=== PATIENT | female | born 2000 | race Two or more races ===

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

== ENCOUNTER 2022-02-18 21:08 | Emergency (ER) | payer OTHER, SELFPAY ==
[2022-02-18 21:28] VITALS: BP 105/65; PULSE 88; RESP 17; TEMP 36.9; O2SAT 98; BMI 28.3
--- NOTE | 2022-02-18 21:57 | PC.NURSE ---
NO increase in eye swelling or throat itchyness.
--- NOTE | 2022-02-18 22:22 | PC.NURSE ---
swelling in eyes improved, patient can see through right eye again.
[2022-02-19] VITALS: BP 106/55; PULSE 86; RESP 16; TEMP 37.2; O2SAT 99
--- NOTE | 2022-02-19 00:31 | ED.ALLEREA ---
HPI - Allergic Reaction General Chief complaint: Allergic Reaction Stated complaint: allergic reaction, face swelling Time Seen by Provider: 02/19/22 00:01 History of Present Illness HPI narrative: Patient is a 22-year-old female presents today with having swelling to the right eye. There is no change in vision. Patient denies any change in her environment. There is no fever no chills no cough no congestion or upper respiratory symptoms. No diaphoresis. No changes in diet. No changes in lotions. No changes in medications. No travel history. Patient is from home. Related Data Previous Rx's Medication Instructions Recorded diphenhydramine HCl 25 mg capsule 25 mg PO Q8H 5 days #15 caps 02/19/22 (Benadryl) epinephrine 0.3 mg/0.3 mL 0.3 mg (0.3 mL) IM ONCE PRN 02/19/22 injection, auto-injector (EpiPen) extreme reaction #1 ea famotidine 20 mg tablet (Pepcid) 20 mg PO BID 5 days #10 tabs 02/19/22 prednisone 20 mg tablet 40 mg PO DAILY #10 tabs 02/19/22 Allergies Allergy/AdvReac Type Severity Reaction Status Date / Time No Known Allergies Allergy Verified 02/18/22 21:31 Review of Systems Review of Systems: No fever no chills no cough no congestion. All system reviewed otherwise negative Yes all other systems are reviewed and are negative FORMERLY [facility], [facility] Past Medical History Attestation statement: The following information was validated with the patient. Social History Social History Advance Directives: No Advance Directives Information Provided: No Physical Exam ED Vital Signs: Vital Signs - 24 hr 02/18/22 21:28 02/19/22 00:00 Temperature 98.5 F 98.9 F Pulse Rate 88 86 Respiratory Rate 17 16 Blood Pressure 105/65 106/55 L Pulse Oximetry 98 99 Oxygen Delivery Method Room Air Room Air BMI result Body Mass Index 28.3 Appearance: Alert. Oriented X3. No acute distress. Eyes: Pupils equal, round and reactive to light. swelling to the right upper eyelid noted. Sclera was normal. Pupils equal reactive. Vision grossly intact. ENT: Pharynx normal. No erythema no swelling noted. Neck: Normal inspection. Neck supple. No lymph nodes noted. No crepitus CVS: Normal heart rate and rhythm. Pulses normal. Normal S1 and S2 Respiratory: No respiratory distress. Breath sounds normal. No Wheezing. No rales Abdomen: Soft and nontender. No rigidity. No distention. good BS x4 Skin: Skin warm and dry. Normal skin color. Normal skin turgor. Extremities: No lower extremity edema. Neurovascular intact to all extremities. No Lacerations. No Rash Neuro: Oriented X 3. No motor deficit. No sensory deficit. Moving all extermities. No slurred speech MDM - Allergic Reaction MDM Narrative Medical decision making narrative: Well-appearing no acute distress. Will go ahead and give steroids give Benadryl. Will monitor carefully. Will discharge patient home with EpiPen. In stable condition. Lungs are clear O2 sats normal no distress Medical Records Attestation: I reviewed the patient's medical records. Lab Data Attestation: I reviewed the patient's lab results. Discharge Plan Discharge Clinical Impression: Allergic reaction Patient Disposition: Home, Self-Care Instructions: General Allergic Reaction (ED) Prescriptions: New prednisone 20 mg tablet 40 mg PO DAILY Qty: 10 0RF famotidine [Pepcid] 20 mg tablet 20 mg PO BID 5 Days Qty: 10 0RF diphenhydramine HCl [Benadryl] 25 mg capsule 25 mg PO Q8H 5 Days Qty: 15 0RF epinephrine [EpiPen] 0.3 mg/0.3 mL auto-injector 0.3 mg IM ONCE PRN (Reason: extreme reaction) Qty: 1 0RF Rx Instructions: for 2 doses
[2022-02-19] MEDS: diphenhydrAMINE HCL 25 MG CAPSULE PO (00:59)
[2022-02-19] MEDS: Famotidine 20 MG TABLET PO (00:59)
[2022-02-19] MEDS: predniSONE 20 MG TABLET 40 MG PO (00:59)
== END 2022-02-19 01:04 | disposition home or self-care (01) ==
PROVIDERS: Emergency Provider Emergency Medicine Emergency Medical Services; PCP Nurse Practitioner Family
DX: L50.0 Allergic urticaria (principal); Z79.899 Other long term (current) drug therapy
CPT/HCPCS: 99283

== ENCOUNTER 2022-03-02 14:14 | Emergency (ER) | payer OTHER, SELFPAY ==
--- NOTE | 2022-03-02 14:56 | ED_ITS ---
HPI - Allergic Reaction General Chief complaint: Allergic Reaction Stated complaint: allergic reaction ?? hives wheezing coughing Source: patient Mode of arrival: ambulatory Limitations: no limitations History of Present Illness HPI narrative: History of allergic reaction. Patient with a long history of allergic reactions, waiting to see an tire and tube repairer. Took benadryl a few hours ago and a zyrtec. Still with hives. Is concerned that her throat is closing. patient is not in any acute distress. Nothing new. patient is on prednisone currently. MD complaint: allergic reaction and hives Onset (ago): hour(s) Exposure: unknown Symptoms: rash Severity: mild Treatment prior to arrival: none Previous Allergic Reaction History: none Related Data Previous Rx's Medication Instructions Recorded diphenhydramine HCl 25 mg capsule 25 mg PO Q8H 5 days #15 caps 02/19/22 (Benadryl) epinephrine 0.3 mg/0.3 mL 0.3 mg (0.3 mL) IM ONCE PRN 02/19/22 injection, auto-injector (EpiPen) extreme reaction #1 ea famotidine 20 mg tablet (Pepcid) 20 mg PO BID 5 days #10 tabs 02/19/22 prednisone 20 mg tablet 40 mg PO DAILY #10 tabs 02/19/22 Allergies Allergy/AdvReac Type Severity Reaction Status Date / Time No Known Allergies Allergy Verified 02/18/22 21:31 Review of Systems Constitutional: Constitutional: Reports no additional constitutional complaints Eyes: Eyes: Reports no additional eye complaints ENT: Denies dizziness Cardiovascular: Cardiovascular: Reports no additional cardiovascular complaints Respiratory: Respiratory: Reports as per HPI Gastrointestinal: Gastrointestinal: Reports no additional gastrointestinal complaints Genitourinary: Genitourinary: Reports no additional female genitourinary complaints Musculoskeletal: Musculoskeletal: Reports no additional musculoskeletal complaints Integumentary/Breasts: Skin/Breast: Denies rash Neurologic: Reports system reviewed and no additional complaints, except as documented, Denies dizziness and Denies Sensory deficit (Neuro) Psychiatric: Psychiatric: Denies anxiety Physical Exam ED Vital Signs: Vital Signs - 24 hr 03/02/22 14:57 Temperature 98.1 F Pulse Rate 110 H Respiratory Rate 18 Blood Pressure 105/72 Pulse Oximetry 99 Oxygen Delivery Method Room Air BMI result Body Mass Index 27.4 Const General: healthy appearing Nutritional Appearance: average body habitus Orientation/consciousness: oriented to person and patient oriented x3 Limitations: no limitations [facility] Head: Yes normal to inspection Ears: external ears normal General nose exam: Normal external nose present Mouth: Normal oral and palatal mucosa present and oropharynx normal Throat: Yes posterior oropharynx normal Eyes General: appearance normal, both eyes and all related structures Neck Neck: Yes normal visual inspection Chest Chest palpation & inspection: normal inspection of the chest Resp Auscultation: clear to auscultation bilaterally Cardio Jugular venous distension: no JVD Rate: regular rate Rhythm: regular rhythm Heart sounds: S1 normal heart sound present and S2 normal heart sound present GI Inspection: Yes normal to inspection Palpation (GI): Soft to palpation, nontender and No hepatosplenomegaly present Auscultation: normal bowel sounds General: Yes no CVA tenderness Back/Spine/Pelvis Back: no CVA tenderness Skin Other: hives to neck and chest Neuro General: oriented to person and patient oriented x3 Cranial nerves: Yes CN's II-XII intact bilaterally Motor exam (neuro): 5/5 motor strength present throughout Sensory Exam: No Sensory deficit (Neuro) Extrem General: Yes normal to inspection Psych Appearance: grossly normal Course Reevaluation(s) Reevaluation #1: History of allergic reaction. Patient with a long history of allergic reactions, waiting to see an tire and tube repairer. Took benadryl a few hours ago and a zyrtec. Still with hives. Is concerned that her throat is closing. patient is not in any acute distress. Reevaluation #2: no evidence of throat closing is on all the right medications will dc home Time: 15:04 Discharge Plan Discharge Clinical Impression: Allergic reaction, Urticaria Patient Disposition: Home, Self-Care Prescriptions: No Action prednisone 20 mg tablet 40 mg PO DAILY Qty: 10 0RF famotidine [Pepcid] 20 mg tablet 20 mg PO BID 5 Days Qty: 10 0RF diphenhydramine HCl [Benadryl] 25 mg capsule 25 mg PO Q8H 5 Days Qty: 15 0RF epinephrine [EpiPen] 0.3 mg/0.3 mL auto-injector 0.3 mg IM ONCE PRN (Reason: extreme reaction) Qty: 1 0RF Rx Instructions: for 2 doses Referrals: Stephanie Lambert [employer] [Primary Care Provider] - 5 days
[2022-03-02 14:57] VITALS: BP 105/72; PULSE 110; RESP 18; TEMP 36.7; O2SAT 99; BMI 27.4
== END 2022-03-02 15:09 | disposition home or self-care (01) ==
LOC: HO.ED 15:08
PROVIDERS: Emergency Provider Emergency Medicine; PCP Nurse Practitioner Family
DX: T78.40XA Allergy, unspecified, initial encounter (principal); L50.9 Urticaria, unspecified; X58.XXXA Exposure to other specified factors, initial encounter
CPT/HCPCS: 99282

== ENCOUNTER 2022-03-19 23:05 | Emergency (ER) | payer OTHER, SELFPAY ==
[2022-03-19 23:07] VITALS: BP 113/72; PULSE 109; RESP 18; TEMP 36.9; O2SAT 98; BMI 28.0
--- OUTSIDE RECORDS SUMMARY | 2022-03-19 23:18 | XMS_ITS | Encounter Summary ---
:2000 Author Care Team Providers Name Role Phone [facility] Primary Care Provider [phone] Reason for Visit allergic reaction Consult for recurrent allergic reactions w/ unknown trigger Assessment and Plan Assessment Note 22 y/o female with new onset seasonal a llergic rhinoconjunctivitis symptoms who presents for evaluation of recurrent all ergic reactions of unclear trigger 1. Allergic reaction Differential includes idiopathic anaphy laxis, catemenial anaphylaxis or viral induced reaction or some other trigger that has not been identified. Complete course of prednisone. To start antihistamine regimen for next 3 months Screening tryptase today and to be repea lang off of antihistamines Epipen prn anaphylaxis Epinephrine auto injector teaching perfo rmed 2. Acute urticaria Previously associated with COVID infect ion. Plan as noted above instructed not to operate machinery if o n sedating medications ? tryptase, serum ? famotidine 20 mg tablet ? Zyrtec 10 mg tablet 3. Seasonal allergic rhinitis Zyrtec. Defer environmental testing unt il hive free off of antihistamines 4. Seasonal allergic conjunctivitis Plan as noted above She understood and agreed with plan Written instructions given and reviewed Follow-up with PCP for all other comorbi dities Follow-up 3 months for urticaria and med check to see if she can taper Discussion Note: None recorded.Patient educational handouts: No information available. Plan of Care Patient Instructions Zyrtec (Cetirizine) 1 tablet once a day at bedtime Famotidine 1 tablet 2 times a day Remain on this for 3 months screening lab today , to repeat off of a ntihistamines Reminders Provider Appointments Telehealth Follow up 06/24/2022 2:00PM Zohreh Luke MD Lab Tryptase, Serum 03/10/2022 [facility] Refer ence Lab [place] [facility] Referral None recorded. ? ? Procedures None recorded. ? ? Surgeries None recorded. ? ? Imaging None recorded. ? ? Medications Name Start Date ? ? diphenhydramine 25 mg tablet ? Take 1 tablet as needed by oral route as needed. EpiPen 0.3 mg/0.3 mL injection, auto-injector ? Take by injection route. famotidine 20 mg tablet ? Take 1 tablet twice a day by oral route. prednisone 25 mg tablet ? Take by oral route. Zyrtec 10 mg tablet ? Take 1 tablet every day by oral route. Medications Administered None recorded. Vitals Height Weight BMI Blood Pressure 5 ft 6 in 180.2 lbs 29.1 kg/m2 102/62 mm[Hg] Results Lab Results Date Name Specimen Result Interpretation Description Value Range Status Address ? 03/10/2022 Tryptase, Serum ? Tryptase 5.8 ? F inal [facility]: [address], [place] [address] Allergies Code Code System Name Reaction Severity Onset NKDA ? ? ? Problems Name Status Onset Date Source ? Seasonal Allergic Conjunctivitis Active 03/10/2022 ? Seasonal Allergic Rhinitis Active 03/10/2022 ? Acute Urticaria Active 03/10/2022 ? Allergic Reaction Active 03/10/2022 ? Procedures None recorded. Vaccine List None recorded. Social History Have you been exposed to chemicals or toxins? N Is your home air conditioned? Y Do you have any pets? Y Notes: 1 dog Do you have a humidifier? Y Do you have moisture problems in your home? N Have you been exposed to heavy metals? N Do you have a basement? Y Do you have an electrostatic air filter? Y Are you passively exposed to smoke? N Are there any smokers in your house? N Where do you live? [facility] How long have you lived there? 3 years Functional Status Unknown. Past Encounters 03/10/2022 Allergic Reaction; Acute Urticaria; Seas onal Allergic Rhinitis; Seasonal Allergic Conjunctivitis Zohreh Luke MD: [address] [place] [address], [address] [id number], Ph. History of Present Illness Note: <div>Pt was seen at [place] ED on 03/02/22 for possible allergic reaction. Pt had been cleaning and opened her window to allow for fresh air. That is when pt developed pruritic hives on her neck,ears, face, axillaries, & upper abdomen. Pt also started coughing and wheezing. Pt denied any changes in diet, medications, cosmetics, detergents, etc. Pt took Benadryl & Zyrtec which re sulted in some improvement in symptoms. ED notes scanned into pt's chart. Pt was started on prednisone by ED and has 2 days left for course.</div><div>ED provided her with Epipen. PCP gave her an asthma pump because she was wheezing with that reaction. </div><div>
</div><div>Pt stated that this was the 3rd time she has experienced this type of reaction. The first time, pt was at rest doing homework. This was the last week of January ( February 18).She experienced itchy, swollen eyes and sneezing this time, as well. The second time was February 26 pt had washed herself with water from outside hose because she did not have access to indoor plumbing at the time. Pt developed hives after this. </div><div>
</div><div>She went to the ED with the last 2 episodes. No taper. This last reaction occurred while still on prednisone.</div><div>No new foods, no enviromental changes, no changes in laundry detergent.</div><div>She denies COVID symptoms. However , she did have COVID in 2019 and had hives during that illness. </div><div>She also had hives again in December when she had COVID again.</div><div>In January, she had a cold with allergies. </div><div>Denies any recent vaccinations. Last COVID vaccine 2020. </div><div>Denies previous history of reactions. </div><div>
</div><div>Denies history of asthma, eczema, food allergy, venom allergy </div><div>
</div><div>Allergic rhinoconjunctivitis symptoms just started this year in December</div><div>Endorses menses during this reaction. Use of NSAID only twice and not on days when reactions occurred.</div> Review of Systems ? Brief Otolaryngology ROS Reported By: Patient Constitutional: Constitutional: no fever, no night sweats, no significant weight gain, no significant weight loss, no exercise intolerance Eyes: Eyes: no irritation, no visi on change ENMT: Ears: no difficulty hearing. Nose: no frequent nosebleeds, nose/sinus problems. Mouth/T hroat: no sore throat, no snoring, no mouth breathing Cardiovascular: Cardiovascular: no chest cassandra n, no palpitations, no known heart murmur Respiratory: Respiratory: no cough, no wh eezing, no shortness of breath Gastrointestinal: Gastrointestinal: no abdomin al pain, no diarrhea, no GERD Neurologic: Neurologic: no loss of consc iousness, no seizures, no headaches Physical Exam ? Brief ENT Exam Reported By: Patient General:: General: well-developed, wel l-nourished, NAD Skin:: Skin: warm, dry, good turgor , pink, no rashes/lesions, hydrated Head:: Head: normal shape, symmetry Neck:: Neck: supple, no mass, no ad enopathy, no thyromegaly Eyes:: Eyes: normal conjunctiva, no rmal sclera, PERRLA, normal lids Ears:: Ears: normal tympanic membra kinsey, good landmarks Nose:: Nose: pink mucosa, normal tu rbinates, septum midline Mouth, Throat:: Mouth, Throat: moist mucosa, no erythema or exudates Chest:: Chest: clear breath sounds, normal respirations, no retractions Heart:: Heart: regular rate and rhyt hm, no murmurs Extremities:: Extremities: good muscle mas s, good muscle tone, good muscle strength Neuromuscular:: Neuromuscular: alert, normal coordination
--- OUTSIDE RECORDS SUMMARY | 2022-03-19 23:18 | XMS_ITS ---
:2000 Author Care Team Providers Name Role Phone Marcel Majano Primary Care Provider Unavailable Allergies Code Code System Name Reaction Severity Status Onset NKDA ? Medications Name Status Start Date Stop Date ? ? azelastine 0.05 % eye drops Active ? Not available INSTILL 1 DROP INTO AFFECTED EYE TWICE A DAY Problems None recorded. Procedures None recorded. Results Lab Results Date Name Specimen Result Interpretation Description Value Range Status Address ? 12/07/2021 SARS CoV 2 RNA ? Result negative ? ? 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 Social History None recorded. Vaccine List Notes: covid vaccinated Pfizer Plan of Care Reminders Provider Appointments None recorded. ? ? Lab None recorded. ? ? Referral None recorded. ? ? Procedures None recorded. ? ? Surgeries None recorded. ? ? Imaging None recorded. ? ? Vitals Blood Pressure 100/62 mm[Hg]
--- NOTE | 2022-03-19 23:33 | ED.ALLEREA ---
HPI - Allergic Reaction General Chief complaint: Allergic Reaction Stated complaint: Allergic Reaction, hives, itchy Time Seen by Provider: 03/19/22 23:24 Source: patient and family Mode of arrival: ambulatory Limitations: no limitations History of Present Illness HPI narrative: This is a 22-year-old female presenting to the emergency department with hives throughout body x1 hour. According to patient and father who is at the bedside patient has been struggling with allergies for over 4 weeks, unsure what patient is allergic to, she is currently in the process of getting an appointment with an art education professor to test. Her daily medications include Zyrtec and TheraFlu. She tells me the last thing she ate was a little bit of rice, and was onion however this was a while ago. She denies chest pain shortness of breath, nausea, vomiting, changes in voice, fevers, chills, cough, changes in can nausea, vomiting, abdominal pain. To note patient does have an EpiPen however she did not use it prior to arrival. Related Data Previous Rx's Medication Instructions Recorded diphenhydramine HCl 25 mg capsule 25 mg PO Q8H 5 days #15 caps 02/19/22 (Benadryl) epinephrine 0.3 mg/0.3 mL 0.3 mg (0.3 mL) IM ONCE PRN 02/19/22 injection, auto-injector (EpiPen) extreme reaction #1 ea famotidine 20 mg tablet (Pepcid) 20 mg PO BID 5 days #10 tabs 02/19/22 prednisone 20 mg tablet 40 mg PO DAILY #10 tabs 02/19/22 epinephrine 0.3 mg/0.3 mL 0.3 mg (0.3 mL) IM Q4H PRN 03/19/22 injection, auto-injector (EpiPen anaphylaxis #2 ea 2-Herber) prednisone 20 mg tablet 40 mg PO DAILY 5 days #10 tabs 03/19/22 Allergies Allergy/AdvReac Type Severity Reaction Status Date / Time No Known Allergies Allergy Verified 02/18/22 21:31 Review of Systems Review of Systems: Constitutional : No Weight loss, No Fever, No Chills, No Fatigue, No Malaise ENT/Mouth : No sore throat, No Rhinorrhea Eyes: No Eye Pain, No Swelling, No Redness Cardiovascular : No Chest Pain, No SOB, No Dyspnea on Exertion, No Orthopnea, No Edema, No Palpitations Respiratory : No Cough, No Sputum, No Wheezing Gastrointestinal : No Nausea, No Vomiting, No Diarrhea, No Constipation, No abdominal Pain, No Hematochezia, No Melena Genitourinary : No Dysuria, No Urinary Frequency, No Hematuria, Musculoskeletal : No joint pain, No Myalgias, No Joint Swelling Skin : No Skin Lesions, + rash Neuro : No Weakness, No Numbness, No Dizziness, No Headache Psych : No Anxiety/Panic, No Depression All other systems reviewed and are negative Yes all other systems are reviewed and are negative [facility] Past Medical History Attestation statement: The following information was validated with the patient. Source: old records reviewed and nursing notes reviewed Social History Social History Advance Directives: No Advance Directives Information Provided: No Physical Exam ED Vital Signs: Vital Signs - 24 hr 03/19/22 23:07 Temperature 98.5 F Pulse Rate 109 H Respiratory Rate 18 Blood Pressure 113/72 Pulse Oximetry 98 Oxygen Delivery Method Room Air BMI result Body Mass Index 28.0 vss Appearance: Alert.? Oriented X3.? No acute distress.? Head: Normocephalic, atraumatic, no step-offs or deformities Eyes: Pupils equal, round and reactive to light.? ENT: Pharynx normal.? Airway patent. No edema, erythema to posterior pharynx, uvula, tongue, hard or soft palate. Patient speaking in full sentences controlling secretions well. Mallampati score of 1 Neck: Normal inspection.? Neck supple.? CVS: Normal heart rate and rhythm.? Pulses normal.? Respiratory: No respiratory distress.? Breath sounds normal.? Abdomen: Soft and nontender.? Skin: Skin warm and dry.? Normal skin color.? Normal skin turgor.?+ hives throughout body head to toe. Extremities: No lower extremity edema.? No calf ttp. 5/5 strength to bilateral upper and lower extremities Back: No midline tenderness, no C-spine tenderness, full range of motion, no CVA tenderness bilaterally Neuro: Oriented X 3.? No motor deficit.? No sensory deficit. CN 2-12 intact Course Reevaluation(s) Reevaluation #1: Re-evaluated patient patient no longer has hives. Again patent airway. No difficulty breathing, chest pain, shortness of breath, nausea, vomiting. Patient tells me she is feeling much better. Will observe patient for a little longer, re-evaluate and discharge her home with EpiPen, prednisone. Advised to follow-up with her PCP in to follow-up with her allergy doctor. Sign-out to doctors carmine Time: 00:16 Medications Administered Discontinued Medications Generic Name Dose Route Start Last Admin Trade Name Fabio PRN Reason Stop Dose Admin Diphenhydramine HCl 25 mg 03/19/22 23:32 03/19/22 23:54 Diphenhydramine Hcl 50 Mg/Ml Vial IVPUSH 03/19/22 23:33 25 mg ONCE ONE Administration Famotidine 20 mg 03/19/22 23:32 03/19/22 23:54 Famotidine/Pf 20 Mg/2 Ml Vial IVPUSH 03/19/22 23:33 20 mg ONCE ONE Administration Methylprednisolone Sodium Succinate 125 mg 03/19/22 23:32 03/19/22 23:54 Methylprednisolone Sod Succ 125 Mg/2 Ml Vial IVPUSH 03/19/22 23:33 125 mg ONCE ONE Administration MDM - Allergic Reaction MDM Narrative Medical decision making narrative: 0 22-year-old female presents with hives throughout body, currently in the process of allergy testing pending an appointment. Did not use an EpiPen. No chest pain, shortness of breath, nausea, vomiting, GI upset Upon physical exam Pharynx normal.? Airway patent. No edema, erythema to posterior pharynx, uvula, tongue, hard or soft palate. Patient speaking in full sentences controlling secretions well. Mallampati score of 1 Plan at this time is to give Solu-Medrol, Benadryl, Pepcid. No need for epi at this times as I do not suspect anaphylaxis. No angioedema or signs of airway compromise. Medical Records Attestation: I reviewed the patient's medical records. Lab Data Attestation: I reviewed the patient's lab results. Critical Care Time Critical Care Time Critical Care Time: No Discharge Plan Discharge Clinical Impression: Allergic reaction, Urticaria Patient Disposition: Home, Self-Care Instructions: Urticaria (ED), Acute Rash (ED), Allergy Testing (ED) Additional Instructions: Take your medications as prescribed. If you were prescribed antibiotics today, it is important that you take your medication to their entirety, do not skip any doses, do not finish them early. Follow-up with your primary care provider this week. Return to the emergency department with new or worsening symptoms. Such as fevers, chills, chest pain, shortness of breath, nausea, vomiting, dizziness, headache, vision changes, lethargy In case of emergency call 911 As we discussed use your EpiPen if you experience difficulty breathing, shortness of breath. I educated on proper use. Please follow-up with allergy testing. Return with new or worsening symptoms. You can take Benadryl 50 mg every 6-8 hours as needed for rash, allergic reaction. It is important to note that if use an EpiPen you should be medically evaluated in go to the closest emergency department therefore call 911 if you use your EpiPen. Prescriptions: New epinephrine [EpiPen 2-Herber] 0.3 mg/0.3 mL auto-injector 0.3 mg IM Q4H PRN (Reason: anaphylaxis) Qty: 2 0RF prednisone 20 mg tablet 40 mg PO DAILY 5 Days Qty: 10 0RF No Action prednisone 20 mg tablet 40 mg PO DAILY Qty: 10 0RF famotidine [Pepcid] 20 mg tablet 20 mg PO BID 5 Days Qty: 10 0RF diphenhydramine HCl [Benadryl] 25 mg capsule 25 mg PO Q8H 5 Days Qty: 15 0RF epinephrine [EpiPen] 0.3 mg/0.3 mL auto-injector 0.3 mg IM ONCE PRN (Reason: extreme reaction) Qty: 1 0RF Rx Instructions: for 2 doses Referrals: Physician,Unknown J [Primary Care Provider] - 2 days Stand Alone Forms: Work/School Release
[2022-03-19] MEDS: Famotidine/PF 20 MG/2 ML VIAL IVPUSH (23:54)
[2022-03-19] MEDS: methylPREDNISolone Sod Succ 125 MG/2 ML VIAL IVPUSH (23:54)
[2022-03-19] MEDS: diphenhydrAMINE HCL 50 MG/ML VIAL 25 MG IVPUSH (23:54)
[2022-03-20] VITALS: BP 115/74; PULSE 106; RESP 16; TEMP 36.9; O2SAT 98
--- NOTE | 2022-03-20 00:49 | PC.NURSE ---
pt sleeping at this time. pt's father at bedside
== END 2022-03-20 01:31 | disposition home or self-care (01) ==
PROVIDERS: Emergency Provider Internal Medicine
DX: T78.40XA Allergy, unspecified, initial encounter (principal); L50.9 Urticaria, unspecified; X58.XXXA Exposure to other specified factors, initial encounter
CPT/HCPCS: 96374; 96375; 99284; J1200; J2930

== ENCOUNTER 2022-08-09 23:46 | Emergency (ER) | payer OTHER, SELFPAY ==
[2022-08-10 00:05] VITALS: BP 111/70; PULSE 79; RESP 18; TEMP 37.1; O2SAT 96; BMI 29.9
--- NOTE | 2022-08-10 00:18 | PC.NURSE ---
Per provider Fermín, lab are not needed to be drawn.
--- NOTE | 2022-08-10 00:25 | ED.GENADULT ---
HPI - General Adult General Chief complaint: Allergic Reaction Stated complaint: allergic reaction, hives, rash Time Seen by Provider: 08/10/22 00:15 Source: patient, family, RN notes reviewed and old records reviewed Mode of arrival: ambulatory Limitations: no limitations History of Present Illness HPI narrative: 22-year-old female with long history of allergic reaction presents for evaluation of what she believes is an allergic reaction She reports that she woke up an hour or 2 ago with hives and swelling to her upper eyelids She reports that she is currently seeing an powerhouse engineer to determine what she wanted to but they believe it is an environmental allergen She has not tried any new medications, foods, soaps, lotions, detergents She takes Zyrtec and famotidine daily The patient took Benadryl 25 mg prior to arrival with some improvement in her symptoms She felt that she had some wheezing earlier but denies any shortness of breath now. She has no difficulty breathing or swallowing The patient has epi pens at home but did not use them Related Data Previous Rx's Medication Instructions Recorded diphenhydramine HCl 25 mg capsule 25 mg PO Q8H 5 days #15 caps 02/19/22 (Benadryl) epinephrine 0.3 mg/0.3 mL 0.3 mg (0.3 mL) IM ONCE PRN 02/19/22 injection, auto-injector (EpiPen) extreme reaction #1 ea famotidine 20 mg tablet (Pepcid) 20 mg PO BID 5 days #10 tabs 02/19/22 prednisone 20 mg tablet 40 mg PO DAILY #10 tabs 02/19/22 epinephrine 0.3 mg/0.3 mL 0.3 mg (0.3 mL) IM Q4H PRN 03/19/22 injection, auto-injector (EpiPen anaphylaxis #2 ea 2-Herber) prednisone 20 mg tablet 40 mg PO DAILY 5 days #10 tabs 03/19/22 prednisone 20 mg tablet 40 mg PO DAILY #6 tabs 08/10/22 Allergies Allergy/AdvReac Type Severity Reaction Status Date / Time No Known Allergies Allergy Verified 02/18/22 21:31 Review of Systems Constitutional: Constitutional: Reports as per HPI, Denies chills, Denies fatigue, Denies fever(s) and Denies headache(s) ENT: Denies headache(s) Cardiovascular: Cardiovascular: Denies chest pain and Denies dyspnea Respiratory: Respiratory: Denies cough and Denies dyspnea Gastrointestinal: Gastrointestinal: Denies abdominal pain, Denies constipation and Denies vomiting Genitourinary: Genitourinary: Denies dysuria Integumentary/Breasts: Skin/Breast: Reports rash Neurologic: Denies headache(s) and Denies focal weakness Endocrine: Endocrine: Denies fatigue PMFSH Social History Social History Alcohol intake: never Smoked in Last 30 Days: No Use of substances other than those prescribed or required for medical reasons: No Advance Directives: No Advance Directives Information Provided: Yes Patient : No Physical Exam ED Vital Signs: Vital Signs - 24 hr 08/10/22 00:05 08/10/22 01:58 Temperature 98.7 F 98.7 F Pulse Rate 79 77 Respiratory Rate 18 16 Blood Pressure 111/70 100/60 Pulse Oximetry 96 98 Oxygen Delivery Method Room Air Room Air BMI result Body Mass Index 29.9 Const General: healthy appearing, comfortable, no acute distress, alert and awake Nutritional Appearance: well nourished Orientation/consciousness: patient oriented x3 HENMT Head: Yes normocephalic and Yes atraumatic Throat: Yes posterior oropharynx normal Eyes Eyelids: Yes eyelids normal Conjunctivae: conjunctivae normal Sclerae: sclerae normal Corneas: corneas normal Pupils: Equal, round and reactive pupils present EOM: EOMs intact bilaterally Neck Neck: Yes full ROM Resp Other: No stridor on exam Effort & Inspection: normal respiratory effort, able to speak in complete sentences, no audible wheezes and not labored Auscultation: clear to auscultation bilaterally Cardio Rate: regular rate Rhythm: regular rhythm GI Inspection: No distended Palpation (GI): Soft to palpation, not firm, nontender, no guarding and not rigid Auscultation: normoactive bowel sounds Skin Other: Mild bilateral periorbital urticaria with faint erythema. No oral come perioral or retropharyngeal edema Neuro General: patient oriented x3 Cranial nerves: Yes CN's II-XII intact bilaterally, Yes Equal, round and reactive pupils present and Yes Bilaterally intact EOM present Cognition (Neuro): normal cognition Extrem Other: Moving all extremities well without any obvious deformities Course Reevaluation(s) Reevaluation #1: Patient re-evaluated, symptoms improved, she is stable for discharge at this time Time: 01:59 Medications Administered Discontinued Medications Generic Name Dose Route Start Last Admin Trade Name Fabio PRN Reason Stop Dose Admin Diphenhydramine HCl 25 mg 08/10/22 00:21 08/10/22 00:47 Diphenhydramine Hcl 25 Mg Capsule PO 08/10/22 00:22 25 mg ONCE ONE Administration Famotidine 20 mg 08/10/22 00:21 08/10/22 00:47 Famotidine 20 Mg Tablet PO 08/10/22 00:22 20 mg ONCE ONE Administration Prednisone 60 mg 08/10/22 00:21 08/10/22 00:47 Prednisone 20 Mg Tablet PO 08/10/22 00:22 60 mg ONCE ONE Administration Medical Decision Making Medical Decision Making [facility] Narrative: Patient along history allergic reaction, appears to have a localized reaction her upper eyelids that is improving with Benadryl that she took. We will add additional doses were eating, additional Benadryl and prednisone and follow closely. Differential Diagnosis Urticaria Allergic reaction Dermatitis Acute rash Anaphylaxis less likely Discharge Plan Discharge Clinical Impression: Allergic reaction Patient Disposition: Home, Self-Care Instructions: General Allergic Reaction (ED) Additional Instructions: Take Benadryl up to 50 mg every 4-6 hours as needed for itching and rash. Take prednisone 40 mg daily for the next 3 days Prescriptions: New prednisone 20 mg tablet 40 mg PO DAILY Qty: 6 0RF No Action prednisone 20 mg tablet 40 mg PO DAILY Qty: 10 0RF famotidine [Pepcid] 20 mg tablet 20 mg PO BID 5 Days Qty: 10 0RF diphenhydramine HCl [Benadryl] 25 mg capsule 25 mg PO Q8H 5 Days Qty: 15 0RF epinephrine [EpiPen] 0.3 mg/0.3 mL auto-injector 0.3 mg IM ONCE PRN (Reason: extreme reaction) Qty: 1 0RF Rx Instructions: for 2 doses epinephrine [EpiPen 2-Herber] 0.3 mg/0.3 mL auto-injector 0.3 mg IM Q4H PRN (Reason: anaphylaxis) Qty: 2 0RF prednisone 20 mg tablet 40 mg PO DAILY 5 Days Qty: 10 0RF Interventions: ED Discharge Assessment Last Done: 08/10/22 02:49 Discharge Date/Time: 08/10/22 02:50
[2022-08-10] MEDS: predniSONE 20 MG TABLET 60 MG PO (00:47)
[2022-08-10] MEDS: diphenhydrAMINE HCL 25 MG CAPSULE PO (00:47)
[2022-08-10] MEDS: Famotidine 20 MG TABLET PO (00:47)
--- NOTE | 2022-08-10 00:53 | PC.NURSE ---
Pt A&Ox4, denies any pain, reports some hives starting last night around 2330, unknown allergen exposure, states this has happen to me before when I open the windows at home . Pt denies any SOB, tongue swelling or CP. Pt speaking in full sentences, RR 18, 96% on RA, lung sounds clear throughout. Meds given as documented.
[2022-08-10 01:58] VITALS: BP 100/60; PULSE 77; RESP 16; TEMP 37.1; O2SAT 98
== END 2022-08-10 02:50 | disposition home or self-care (01) ==
PROVIDERS: Emergency Provider Emergency Medicine Emergency Medical Services
DX: L50.9 Urticaria, unspecified (principal); T78.40XA Allergy, unspecified, initial encounter; X58.XXXA Exposure to other specified factors, initial encounter
CPT/HCPCS: 99283; 99284

== ENCOUNTER 2022-11-14 20:55 | Emergency (ER) | payer OTHER, SELFPAY ==
[2022-11-14 21:03] VITALS: BP 105/59; PULSE 102; RESP 20; TEMP 37
--- NOTE | 2022-11-14 21:14 | ED.GENADULT ---
HPI - General Adult General Chief complaint: Allergic Reaction Stated complaint: allergic reaction, swollen eyes Time Seen by Provider: 11/14/22 21:14 Source: patient and family (patient's mother) Mode of arrival: ambulatory Limitations: no limitations History of Present Illness HPI narrative: Patient is a 22 year old assigned female at with a history of various allergies presenting to the emergency department today with an allergic reaction with swelling around her eyes. Patient states that she is still working with an oncology physician assistant to determine what exact allergies she has but today after hugging a friend of hers wearing a perfume, her eyes began to swell. Patient states that this happens fairly often but it usually resolves after Benadryl, this time it hasn't. Patient states that she took a total of 50mg of Benadryl by mouth at home. Patient denies any dizziness, lightheadedness, abdominal pain, nausea, vomiting, fever, chills, blurry vision, double vision, loss of vision, chest pain, difficulty breathing, shortness of breath, back pain, night sweats, pain with urination, increased urinary frequency, increased urinary urgency, blood in her urine or stool, syncope or a near syncopal episode, recent trauma or falls, bowel incontinence, bladder incontinence, bowel retention, bladder retention, or any other complaints at this time. Onset (ago): hour(s) Location: face Radiation: non-radiation Severity: mild Severity scale (1-10): 3 Relieving factors: none Exacerbating factors: none Associated symptoms: denies other symptoms Treatments prior to arrival: none Related Data Previous Rx's Medication Instructions Recorded diphenhydramine HCl 25 mg capsule 25 mg PO Q8H 5 days #15 caps 02/19/22 (Benadryl) epinephrine 0.3 mg/0.3 mL 0.3 mg (0.3 mL) IM ONCE PRN 02/19/22 injection, auto-injector (EpiPen) extreme reaction #1 ea famotidine 20 mg tablet (Pepcid) 20 mg PO BID 5 days #10 tabs 02/19/22 prednisone 20 mg tablet 40 mg PO DAILY #10 tabs 02/19/22 epinephrine 0.3 mg/0.3 mL 0.3 mg (0.3 mL) IM Q4H PRN 03/19/22 injection, auto-injector (EpiPen anaphylaxis #2 ea 2-Herber) prednisone 20 mg tablet 40 mg PO DAILY 5 days #10 tabs 03/19/22 prednisone 20 mg tablet 40 mg PO DAILY #6 tabs 08/10/22 prednisone 20 mg tablet 20 mg PO DAILY 7 days #7 tabs 11/14/22 Allergies Allergy/AdvReac Type Severity Reaction Status Date / Time No Known Allergies Allergy Verified 02/18/22 21:31 Review of Systems Constitutional: Constitutional: Reports no additional constitutional complaints, Denies chills, Denies fever(s) and Denies night sweats Eyes: Eyes: Reports no additional eye complaints, Denies blurry vision, Denies change in vision, Denies diplopia, Denies eye discharge, Denies loss of vision and Denies eye pain Comments: swelling around the eyes ENT: Denies dizziness Cardiovascular: Cardiovascular: Reports no additional cardiovascular complaints, Denies chest pain, Denies lightheadedness, Denies Loss of Consciousness and Denies dyspnea Respiratory: Respiratory: Reports no additional respiratory complaints and Denies dyspnea Gastrointestinal: Gastrointestinal: Reports no additional gastrointestinal complaints, Denies abdominal pain, Denies melena, Denies hematochezia, Denies change in bowel habits and Denies change in stool character Genitourinary: Genitourinary: Denies hematuria, Denies urinary frequency, Denies dysuria, Denies urinary incontinence, Denies urinary hesitancy and Denies urinary urgency Musculoskeletal: Musculoskeletal: Reports no additional musculoskeletal complaints, Denies numbness and Denies tingling Neurologic: Denies dizziness, Denies loss of vision, Denies numbness and Denies tingling Psychiatric: Psychiatric: Reports no additional psychiatric complaints Endocrine: Endocrine: Reports no additional endocrine complaints Hematologic/Lymphatic: Hematologic/Lymphatic: Reports no additional hematologic/lymphatic complaints Allergic/Immunologic: Allergic/Immunologic: Reports no additional allergic/immunologic complaints PMFSH Past Medical History Attestation statement: The following information was validated with the patient. (all information validated with the patient's mother) Source: old records reviewed, obtained from family (patient's mother provided additional history and confirmed the history provided by the patient.) and nursing notes reviewed Social History Social History Alcohol intake: never Smoked in Last 30 Days: No Use of substances other than those prescribed or required for medical reasons: No Advance Directives: No Advance Directives Information Provided: No Patient : No Physical Exam ED Vital Signs: Vital Signs - 24 hr 11/14/22 21:03 Temperature 98.6 F Pulse Rate 102 H Respiratory Rate 20 Blood Pressure 105/59 L Oxygen Delivery Method Room Air BMI result Body Mass Index 30.0 Const General: cooperative, no acute distress, alert and awake Nutritional Appearance: well nourished Orientation/consciousness: patient oriented x3 Limitations: no limitations HENMT Head: Yes normal to inspection and Yes atraumatic Ears: hearing grossly normal bilaterally and external ears normal General nose exam: Normal external nose present, no nasal discharge noted and no epistaxis Face and sinus: Yes normal facial exam, No abrasion and No laceration Mouth: Normal oral and palatal mucosa present, no drooling and no muffled voice Eyes Other: minimal swelling / puffiness to bilateral upper and lower eye lids Conjunctivae: conjunctivae normal Pupils: Equal, round and reactive pupils present EOM: EOMs intact bilaterally Neck Neck: Yes normal visual inspection, Yes full ROM and Yes no lymphadenopathy Chest Chest palpation & inspection: normal inspection of the chest Resp Effort & Inspection: normal respiratory effort and able to speak in complete sentences Auscultation: clear to auscultation bilaterally Cardio Rate: regular rate Rhythm: regular rhythm GI Inspection: Yes normal to inspection Neuro General: patient oriented x3 and moves all extremities Cranial nerves: Yes Equal, round and reactive pupils present Cognition (Neuro): normal cognition Motor exam (neuro): 5/5 motor strength present throughout Sensory Exam: Normal double simultaneous stimulation for sensation Coordination: [id number] test normal Extrem General: Yes normal to inspection, Yes full ROM and Yes capillary refill normal Psych Appearance: grossly normal Mental Status: mental status grossly normal Affect: normal affect Attitude: cooperative Thought process: Normal thought process present Thought content: Normal thought content present Insight: Good insight present (Psych) Medications Administered Discontinued Medications Generic Name Dose Route Start Last Admin Trade Name Freq PRN Reason Stop Dose Admin Famotidine 20 mg 11/14/22 21:23 11/14/22 22:09 Famotidine 20 Mg Tablet PO 11/14/22 21:24 20 mg ONCE ONE Administration Methylprednisolone Sodium Succinate 60 mg 11/14/22 21:23 11/14/22 22:09 Methylprednisolone Sod Succ 125 Mg/2 Ml Vial IM 11/14/22 21:24 60 mg ONCE ONE Administration Medical Decision Making Medical Decision Making [facility] Narrative: Patient is a 22 year old assigned female at with a history of allergies presenting to the emergency department today with an allergic reaction. Patient's physical exam was as noted in the physical exam portion of this chart. I explained my physical exam findings to the patient and the patient's mother. I answered all questions asked by the patient and the patient's mother. Patient received Pepcid and Solu-Medrol which she stated helped her symptoms significantly. I stressed the importance of the patient taking her medication as prescribed. I stressed the importance of the patient following up with her primary care provider. I stressed the importance of the patient returning to the emergency department immediately if her symptoms were to worsen or if she were to develop any dizziness, shortness of breath, difficulty breathing, chest pain, blurry vision, loss of vision, nausea, vomiting, abdominal pain, fever, chills, back pain, or any other complaints. Patient and the patient's mother verbalized agreement and understanding with this treatment plan and discharge. Differential Diagnosis Differential Diagnoses: The differential diagnosis associated with the presentation includes Allergic reaction Independent Historian Clinical information obtained from an independent historian. History obtained from or confirmed by: Parent (patient's mother provided additional history and confirmed the history provided by the patient.) Discharge Plan Discharge Clinical Impression: Allergic reaction Patient Disposition: Home, Self-Care Instructions: General Allergic Reaction (ED) Additional Instructions: Follow up with your primary care provider. Return to the emergency department immediately if your symptoms worsen or if you develop any dizziness, shortness of breath, difficulty breathing, chest pain, blurry vision, loss of vision, nausea, vomiting, abdominal pain, fever, chills, back pain, or any other complaints. Prescriptions: New prednisone 20 mg tablet 20 mg PO DAILY 7 Days Qty: 7 0RF No Action prednisone 20 mg tablet 40 mg PO DAILY Qty: 10 0RF famotidine [Pepcid] 20 mg tablet 20 mg PO BID 5 Days Qty: 10 0RF diphenhydramine HCl [Benadryl] 25 mg capsule 25 mg PO Q8H 5 Days Qty: 15 0RF epinephrine [EpiPen] 0.3 mg/0.3 mL auto-injector 0.3 mg IM ONCE PRN (Reason: extreme reaction) Qty: 1 0RF Rx Instructions: for 2 doses epinephrine [EpiPen 2-Herber] 0.3 mg/0.3 mL auto-injector 0.3 mg IM Q4H PRN (Reason: anaphylaxis) Qty: 2 0RF prednisone 20 mg tablet 40 mg PO DAILY 5 Days Qty: 10 0RF prednisone 20 mg tablet 40 mg PO DAILY Qty: 6 0RF Referrals: [facility] [place] Family Medicine [Provider Group] (Call to establish and follow up with a primary care provider. If you already have a primary care provider, please follow up with them.) [facility] [place] Primary Care, [place] [Provider Group] (Call to establish and follow up with a primary care provider. If you already have a primary care provider, please follow up with them.) [facility] [place] [facility] [Provider Group] (Call to establish and follow up with a primary care provider. If you already have a primary care provider, please follow up with them.) Interventions: ED Discharge Assessment Last Done: 11/14/22 23:01 Discharge Date/Time: 11/14/22 23:02 Print Language: Bermudian
[2022-11-14] MEDS: methylPREDNISolone Sod Succ 125 MG/2 ML VIAL 60 MG IM (22:09)
[2022-11-14] MEDS: Famotidine 20 MG TABLET PO (22:09)
== END 2022-11-14 23:02 | disposition home or self-care (01) ==
PROVIDERS: Emergency Provider Emergency Medicine
DX: T78.40XA Allergy, unspecified, initial encounter (principal); X58.XXXA Exposure to other specified factors, initial encounter
CPT/HCPCS: 96372; 99284; J2930

== ENCOUNTER 2023-02-13 10:29 | Outpatient (REF) | payer OTHER, SELFPAY | END 2023-02-13 10:30 | disposition home or self-care (01) | LOC: HO.LAB 10:29 | PROVIDERS: PCP Pediatrics; Visit Provider Otolaryngology | DX: L50.1 Idiopathic urticaria (principal) | CPT/HCPCS: 36415; 82785; 86003 ==

== ENCOUNTER 2023-10-26 13:46 | Outpatient (REF) | payer SELFPAY | END 2023-10-26 13:47 | disposition home or self-care (01) | LOC: HO.LAB 13:46 | PROVIDERS: PCP Pediatrics; Visit Provider Otolaryngology | DX: J30.89 Other allergic rhinitis (principal) | CPT/HCPCS: 36415; 82785; 86003 ==

== ENCOUNTER 2023-12-13 10:48 | Outpatient (AMB) | payer OTHER, SELFPAY ==
[2023-12-13 10:49] VITALS: BP 92/64; PULSE 63; O2SAT 99; BMI 29.3
--- NOTE | 2023-12-13 10:49 | MHC.PC.OV ---
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 Intake Note: Patient is a new patient here to establish care Electrical Electronics Engineers Required: No Allergies No Known Allergies Allergy (Verified 12/13/23 11:08) Medication List - Last Reconciled 12/13/23 by Aubrie Castañeda PA-C albuterol sulfate 90 mcg/actuation 1 inh inhalation QID cetirizine 10 mg PO DAILY diphenhydramine HCl (Benadryl) 25 mg PO Q8H 5 days epinephrine (EpiPen) 0.3 mg (0.3 mL) IM ONCE PRN epinephrine (EpiPen 2-Herber) 0.3 mg (0.3 mL) IM Q4H PRN montelukast 10 mg PO DAILY Tobacco use date assessed: 12/13/23 Dental Screening Dental Screen Date: 12/13/23 Did you have a dental visit in the last 12 months?: No Did you have a dental problem in the last 6 months where you did not have access to dental care?: No 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 Patient has been seen in [facility] on various occasions for urticaria and allergic reactions. 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 She uses her inhaler as needed which is a few times per month. She does not follow with a formal waiter/waitress and is not sexually active. She regularly sees an eye doctor over the ear. Previously she was diagnosed with acid reflux and was on famotidine but has been without treatment for some time now as her symptoms have been worsening. [facility] Family History (Updated 12/13/23 @ 11:10 by Aubrie Castañeda PA-C) Paternal Grandmother Heart attack Social History Housing: House Alcohol intake: never Patient Tobacco Use Status: Never used Tobacco service: No Current occupational status: employed Cognitive needs: No Hearing needs: No Vision needs: No Female Reproductive History Menstrual control method: none Questionnaire PHQ-9 Over the last 2 weeks, how often have you been bothered by any of the following problems? 1. Little interest or pleasure in doing things: not at all 2. Feeling down, depressed, or hopeless: not at all 3. Trouble falling or staying asleep, or sleeping too much: not at all 4. Feeling tired or having little energy: not at all 5. Poor appetite or overeating: not at all 6. Feeling bad about yourself - or that you are a failure or have let yourself or your family down: not at all 7. Trouble concentrating on things, such as reading the newspaper or watching television: not at all 8. Moving or speaking so slowly that other people could have noticed. Or the opposite - being so fidgety or restless that you have been moving around a lot more than usual: not at all 9. Thoughts that you would be better off or of hurting yourself in some way: not at all Total score: 0 Source: Developed by Drs. Sudarshan Abreu, Candace Zarco, Michael Duggan and colleagues, with an educational gama from [employer]. Thrive Questionnaire Date Thrive assessed: 12/07/23 I am a: Patient What is your living situation today?: I have a steady place to live Within the past 12 months, did the food you bought not last and you didn't have the money to get more?: Never true Within the past 12 months, did you worry whether your food would run out before you got money to buy more?: Never true Do you have trouble paying for medicines?: No Do you have trouble getting transportation to medical appointments?: No Do you have trouble paying your heating and electricity bill?: No Do you have trouble taking care of your child, family member or friend?: No Do you have trouble with day-to-day activities such as bathing, preparing meals, shopping, managing finances, etc.?: No Are you currently unemployed and looking for a job?: No Are you interested in more education?: Yes Please select the resources that you would like help with: None Currently or been in a relationship where the following occur: No concerns reported THRIVE Score: 0 AUDIT C Alcohol Use Questionnaire (AUDIT-C) 1. How often do you have a drink containing alcohol?: Never 3. How often do you have six or more drinks on one occasion?: Never Total Score: 0 DIANNE-7 AMB Questionnaire DIANNE-7 Date DIANNE - 7 assessed: 12/13/23 Feeling nervous, anxious, or on edge: 0 = Not at all Not being able to stop or control worryin = Not at all Worrying too much about different things: 0 = Not at all Trouble relaxin = Not at all Being so restless that it is hard to sit still: 0 = Not at all Becoming easily annoyed or irritable: 0 = Not at all Feeling afraid as if something awful might happen: 0 = Not at all Total DIANNE-7 score (0-4 normal; 5-9 mild; 10-14 moderate; 15-21 severe): 0 Source: Developed by Drs. Sudarshan bAreu, Candace Zarco, Michael Duggan and colleagues, with an educational gama from [employer]. Review of Systems Const Denies body aches, Denies fatigue, Denies fever(s), Denies frequent falls, Denies headache(s) and Denies weakness Eyes Reports no additional complaints and Denies change in vision ENT Denies dysphagia, Denies dizziness, Denies facial pain, Denies headache(s), Denies nasal congestion and Denies odynophagia Card Denies chest pain, Denies syncope, Denies irregular heart rhythm, Denies leg edema, Denies lightheadedness and Denies dyspnea Resp Denies cough and Denies dyspnea GI Reports bloating, Denies constipation, Denies dysphagia, Denies dyspepsia, Reports heartburn, Denies diarrhea, Denies nausea, Denies odynophagia and Denies vomiting Denies urinary frequency, Denies dysuria, Denies urinary hesitancy and Denies urinary urgency Musc Denies back pain and Denies myalgias Skin/Breast Reports system reviewed and no additional complaints, except as documented Neuro Denies dizziness, Denies syncope, Denies frequent falls, Denies headache(s) and Denies weakness Psych Reports no additional complaints Endo Denies fatigue Physical exam (Primary Care) Vital Signs: Last Vital Signs Pulse 63 12/13/23 10:49 BP 92/64 12/13/23 10:49 Pulse Ox 99 12/13/23 10:49 Oxygen Delivery Method Room Air 12/13/23 10:49 BMI result Body Mass Index 29.3 Tobacco/Smoking Status: Tobacco use Status Tobacco use date assessed 12/13/23 12/13/23 10:51 Patient Tobacco Use Status Never used Tobacco 12/13/23 11:00 PHQ-9: PHQ-9 Score PHQ-9: Total score 0 12/13/23 11:00 Thrive Assessment: Date of Thrive Assessment Date Thrive assessed 12/07/23 12/13/23 10:51 Currently or been in a relationship where the following occur: No concerns reported Const General: cooperative, healthy appearing, comfortable and no acute distress Orientation/consciousness: patient oriented x3 HENMT Head: Yes normocephalic Ears: hearing grossly normal bilaterally, external ears normal, TM's normal bilaterally and EAC's normal General nose exam: Normal external nose present Face and sinus: Yes normal facial exam and Yes sinuses nontender Mouth: Normal oral and palatal mucosa present and tongue normal Throat: Yes posterior oropharynx normal Eyes General: appearance normal, both eyes and all related structures Conjunctivae: conjunctivae normal Pupils: Equal, round and reactive pupils present EOM: EOMs intact bilaterally and No Nystagmus present Neck Neck: Yes normal visual inspection, Yes full ROM and Yes no lymphadenopathy Chest Chest palpation & inspection: normal inspection of the chest Resp Effort & Inspection: normal respiratory effort Auscultation: clear to auscultation bilaterally, no crackles, no rales, no rhonchi, no wheezes and breath sounds present Cardio Rate: regular rate Rhythm: regular rhythm Peripheral pulses: radial pulses present and dorsalis pedis present GI Inspection: Yes normal to inspection and No Abdominal wall edema Palpation (GI): Soft to palpation, not firm and nontender Auscultation: normal bowel sounds Rectal Exam - Female: deferred General: Yes no CVA tenderness Back/Spine/Pelvis Back: no CVA tenderness Skin General skin exam: no rashes or lesions noted Neuro General: patient oriented x3 Cranial nerves: Yes Equal, round and reactive pupils present, Yes Midline tongue present, Yes Ability to bilaterally elevate shoulders present and No Nystagmus present Gait exam (Neuro): Normal gait present Extrem General: Yes normal to inspection, Yes full ROM, No no pedal edema and No edema Psych Speech and movement: Normal speech and movement present Affect: normal affect Insight: Good insight present (Psych) Judgement: Good judgement present (Psych) Assessment and Plan Assessment & Plan (1) GERD (gastroesophageal reflux disease): Code(s): K21.9 - Gastro-esophageal reflux disease without esophagitis Plan: Avoid trigger foods such as citrus, tomato products, soda, caffeine, spicy foods and other foods that may be irritating to your stomach. Avoid laying flat 3-4 hours after eating and elevate the head of the bed 30 degrees to prevent acid from moving into the esophagus. Famotidine prescribed today. Follow up in 3 months. (2) Annual physical exam: Code(s): Z00.00 - Encounter for general adult medical examination without abnormal findings Plan: Patient is up-to-date on all routine screenings and vaccinations for her age. She declined referral to Gynecology and is not sexually active so has declined routine Pap smears. If this changes please reach out to the office so we can refer you to gynecology. Routine blood work ordered at this visit. Plan This note was constructed using voice recognition software. While every effort has been made to ensure accuracy and research quality assurance analyst, still areas may have been included sometimes these areas may affect the content or meeting of the given symptoms. Total time spent caring for the patient today was 30 minutes. This includes time spent before the visit reviewing the chart, time spent during the visit, and time spent after the visit and documentation. Orders: Orders Free T4 (Free Thyroxine) Today Z00.00 - Encounter for general adult medical examination without abnormal findings Vitamin B12 and Folate Today Z00.00 - Encounter for general adult medical examination without abnormal findings Vitamin D 25-OH (D2 and D3) Today Z00.00 - Encounter for general adult medical examination without abnormal findings Complete Blood Count Auto Diff Today Z00.00 - Encounter for general adult medical examination without abnormal findings Comprehensive Met. Panel Today Z00.00 - Encounter for general adult medical examination without abnormal findings TSH reflex Free T4 Today Z00.00 - Encounter for general adult medical examination without abnormal findings Medications: New famotidine (Acid Metal Ceiling Builder (famotidine)) 10 mg PO DAILY 30 tabs 2RF Coding Level of Care Code New Pt Prev Care 18-39yr([id number] Diagnoses GERD (gastroesophageal reflux disease) K21.9 Annual physical exam Z00.00
== END 2023-12-13 11:35 | disposition home or self-care (01) ==
DX: K21.9 Gastro-esophageal reflux disease without esophagitis (principal); Z00.00 Encounter for general adult medical examination without abnormal findings
CPT/HCPCS: 99385

== ENCOUNTER 2023-12-13 11:46 | Outpatient (REF) | payer OTHER, SELFPAY ==
[2023-12-13 11:55] LABS: MANUAL DIFF FLAG NO
[2023-12-13 12:32] LABS: Basophils Percent Auto 0.6 % (0-2); Eosinophils Absolute Auto 0.1 X10*3/uL (0.0-0.4); Eosinophils Percent Auto 1.9 % (0-4); Hematocrit 36.3 % (37.0-47.0); Hemoglobin 11.9 g/dl (12.0-16.0); Imm Gran Abs Auto 0.02 X10*3/uL (0.00-0.03); Imm Gran Pct Auto 0.4 % (0.0-0.4); Lymphocytes Absolute Auto 1.7 X10*3/uL (1.2-4.9); Lymphocytes Percent Auto 31.1 % (20-40); Mean Corpuscular HGB Conc 32.8 g/dl (31.0-35.0); Mean Corpuscular Hemoglobin 29.3 pg (27.0-33.0); Mean Corpuscular Volume 89.4 fL (80.0-98.0); Mean Platelet Volume 11.1 fL (9.4-12.3); Monocytes Absolute Auto 0.5 X10*3/uL (0.1-1.2); Monocytes Percent Auto 8.4 % (2-11); Neutrophils Absolute Auto 3.1 x10*3/uL (2.0-8.3); Neutrophils Percent Auto 57.6 % (45-73); Platelet Count 303 X10*3/uL (160-400); Red Blood Count 4.06 X10*6/uL (4.20-5.50); Red Cell Distribution Width 11.9 % (11.0-16.0); White Blood Count 5.3 X10*3/uL (4.8-10.8)
[2023-12-13 13:09] LABS: Alanine Aminotransferase 16 U/L (0-31); Albumin Level 4.1 g/dL (3.5-5.0); Alkaline Phosphatase 51 U/L (39-117); Anion Gap 10 (12-20); Aspartate Amino Transferase 14 U/L (5-31); Bilirubin Total 0.4 mg/dL (0.0-1.0); Blood Urea Nitrogen 8 mg/dL (9-16); Calcium 9.4 mg/dL (8.4-10.2); Carbon Dioxide 26 mmol/L (22-29); Chloride 108 mmol/L (96-108); Estimated Glomerular Filt Rate > 60; Glucose Random 83 mg/dL (60-115); Potassium 4.1 mmol/L (3.3-5.1); Sodium 140 mmol/L (135-145); Total Protein 7.2 g/dL (6.5-8.0)
[2023-12-13 13:25] LABS: Free T4 (Free Thyroxine) 1.06 ng/dL (0.71-1.85); TSH reflex Free T4 0.64 uIU/mL (0.32-4.0)
[2023-12-13 13:38] LABS: Folate 11.3 ng/mL (> or = 4.0); Vitamin B12 554 pg/mL (200-900)
[2023-12-17 16:28] LABS: Vitamin D 25-OH, D2 <4 ng/mL; Vitamin D 25-OH, D3 15 ng/mL; Vitamin D 25-OH, Total 15 ng/mL (30-100)
== END 2023-12-13 11:47 | disposition home or self-care (01) ==
LOC: HO.LAB 11:46
DX: Z00.00 Encounter for general adult medical examination without abnormal findings (principal)
CPT/HCPCS: 36415; 80053; 82306; 82607; 82746; 84439; 84443; 85025

== ENCOUNTER 2024-03-15 08:57 | Outpatient (AMB) | payer OTHER, SELFPAY ==
[2024-03-15 09:00] VITALS: BP 92/68; PULSE 91; O2SAT 98; BMI 28.8
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
== END 2024-03-15 09:21 | disposition home or self-care (01) ==
DX: K21.9 Gastro-esophageal reflux disease without esophagitis (principal); J45.909 Unspecified asthma, uncomplicated; N63.0 Unspecified lump in unspecified breast; J34.89 Other specified disorders of nose and nasal sinuses

== ENCOUNTER 2024-04-20 08:36 | Outpatient (REF) | payer OTHER, SELFPAY ==
--- NOTE | ~2024-04-20 | US_ITS ---
EXAMINATION: US DIAGNOSTIC ULTRASOUND BREAST, RIGHT CLINICAL INFORMATION: Right breast lump at 12:00 for one month tiny grain of rice in size. COMPARISON: Comparison is made with relevant prior imaging. TECHNIQUE: Ultrasound of the breast is performed with real-time carpenter scale imaging and color Doppler. FINDINGS: Targeted color Doppler ultrasound scanning in the area the patient's palpable lump in the upper inner quadrant upper central right breast demonstrates normal fibroglandular breast tissue. There is no sonographic abnormality. Results are discussed with the patient at time of visit. US/US breast RT limited mamm only IMPRESSION: No sonographic abnormality to account for the patient's palpable lump. Recommend clinical evaluation and follow-up. ASSESSMENT: BI-RADS 1: Negative RECOMMENDATION: Clinical evaluation and follow-up for right breast palpable lump. This patient's information was entered into a reminder system with a target due date for their next mammogram. Electronically signed by: Xin Barbosa DO 04/20/2024 09:07 AM KATIA
== END 2024-04-20 08:37 | disposition home or self-care (01) ==
LOC: HO.MAMMO 08:36
DX: N63.15 Unspecified lump in the right breast, overlapping quadrants (principal)
CPT/HCPCS: 76642

== ENCOUNTER → 2024-04-20 08:45 | Outpatient (BNV) | payer OTHER, SELFPAY | PROVIDERS: Visit Provider Internal Medicine | DX: N63.15 Unspecified lump in the right breast, overlapping quadrants (principal); R92.321 Mammographic fibroglandular density, right breast | CPT/HCPCS: 76642 ==

== ENCOUNTER 2024-12-20 16:14 | Outpatient (AMB) | payer OTHER, SELFPAY ==
--- OUTSIDE RECORDS SUMMARY | 2024-12-20 17:05 | XMS_ITS | Patient Health Record ---
Author Organization [facility] Address [address] [place] [address] Care Team Providers Care Aerospace Manager Name Role Phone Tad CRUZ, Clayton Primary Care Provider Marah Gary Unavailable [phone] Allergies No Known Allergies Reason For Referral No Information Medications Medication SIG (Take, Route, Fr equency, Duration) Notes Start Date End Date Status Gym Note . . . Medical from gym 06/12/19 06/02/2019 Active Cephalexin 500 MG 1 capsule Orally joselyn ry 6 hrs; Duration: 5 day(s) Active Biotin Active School Note . . . Pt was seen in [facility] today; Duration: . 06/02/2019 Active Cephalexin 500 MG 1 capsule Orally joselyn ry 6 hrs; Duration: 5 day(s) Active Immunizations Vaccine Route Administration Date Status Comme nts COVID-19 Pfizer BioNTech Vaccine Unknown 07/16/2020 Administered Second Dose: 08/06/2020 Social History Tobacco Use: Social History Observation Description Date Details (start date - stop date) Never Smoker NA - NA Tobacco Use/Smoking Question Answer Notes Are you a: nonsmoker Alcohol Screen Question Answer Notes Did you have a drink containing alcohol in the p ast year? No Points 0 Interpretation Negative Tobacco use other than smoking: Question Answer Notes Are you an other tobacco user? No Plan Of Treatment No Information Insurance Providers Payer Name Payer Address Payer Phone Subscriber Number Group Number Insured Name Patient Relationship to Insured Coverage Start Date Coverage End Date [facility] [address] [place] [address] [id number] Dacia Willis Self - patient is the insured Medical (General) History Surgical History Surgery Date(Month/Year)
== END 2024-12-20 16:16 | disposition home or self-care (01) ==
LOC: HO.HMGAL 16:14
PROVIDERS: Visit Provider Registered Nurse Emergency
DX: J30.89 Other allergic rhinitis (principal)
CPT/HCPCS: 95117; 95165

== ENCOUNTER 2025-01-03 13:43 | Outpatient (AMB) | payer OTHER, SELFPAY ==
--- OUTSIDE RECORDS SUMMARY | 2025-01-03 16:48 | XMS_ITS | Patient Health Record ---
Author Organization [facility] [place] Address [address] [place] [address] Care Team Providers Care Hydroponics Worker Name Role Phone Tad CRUZ, Clayton Primary Care Provider Marah Gary Unavailable [phone] Allergies No Known Allergies Reason For Referral No Information Medications Medication SIG (Take, Route, Fr equency, Duration) Notes Start Date End Date Status Gym Note . . . Medical from gym 06/12/19 06/02/2019 Active Cephalexin 500 MG 1 capsule Orally joselyn ry 6 hrs; Duration: 5 day(s) Active Biotin Active School Note . . . Pt was seen in [facility] today; Duration: . 06/02/2019 Active Cephalexin 500 [...] Insured Coverage Start Date Coverage End Date [facility] [address] [place] [address] [id number] Dacia Willis Self - patient is the insured Medical (General) History Surgical History Surgery Date(Month/Year)
== END 2025-01-03 13:55 | disposition home or self-care (01) ==
LOC: HO.HMGAL 13:43
PROVIDERS: Visit Provider Registered Nurse Emergency
DX: J30.89 Other allergic rhinitis (principal)
CPT/HCPCS: 95117; 95165

== ENCOUNTER 2025-01-17 14:00 | Outpatient (AMB) | payer OTHER, SELFPAY ==
--- OUTSIDE RECORDS SUMMARY | 2025-01-17 16:28 | XMS_ITS | Patient Health Record ---
Author Organization [facility] Address [address] [place] [address] Care Team Providers Care Environmental Issues Instructor Name Role Phone Tad CRUZ, Clayton Primary Care Provider Marah Gary Unavailable [phone] Allergies No Known Allergies Reason For Referral No Information Medications Medication SIG (Take, Route, Fr equency, Duration) Notes Start Date End Date Status Gym Note . . . Medical from gym 06/12/19 06/02/2019 Active Cephalexin 500 MG 1 capsule Orally joselyn ry 6 hrs; Duration: 5 day(s) Active Biotin Active School Note . . . Pt was seen in [facility] today; Duration: . 06/02/2019 Active [...] Insured Coverage Start Date Coverage End Date [facility] [address] [place] [address] [id number] Dacia Willis Self - patient is the insured Medical (General) History Surgical History Surgery Date(Month/Year)
== END 2025-01-17 14:24 | disposition home or self-care (01) ==
LOC: HO.HMGAL 14:00
PROVIDERS: Visit Provider Registered Nurse Emergency
DX: J30.89 Other allergic rhinitis (principal)
CPT/HCPCS: 95117; 95165

== ENCOUNTER 2025-01-30 07:20 | Outpatient (AMB) | payer OTHER, SELFPAY ==
--- OUTSIDE RECORDS SUMMARY | 2025-01-30 07:22 | XMS_ITS | Patient Health Record ---
Author Organization [facility] Address [address] [place] [address] Care Team Providers Care Straight Knife Cutter Machine Name Role Phone Tad CRUZ, Clayton Primary Care Provider Marah Gary Unavailable [phone] Allergies No Known Allergies Reason For Referral No Information Medications Medication SIG (Take, Route, Fr equency, Duration) Notes Start Date End Date Status Gym Note . . . Medical from gym 06/12/19 06/02/2019 Active Cephalexin 500 MG 1 capsule Orally joselyn ry 6 hrs; Duration: 5 day(s) Active Biotin Active School Note . . . Pt was seen in [facility] today; Duration: . 06/02/2019 Active [...] Insured Coverage Start Date Coverage End Date [facility] [address] [place] [address] [id number] Dacia Willis Self - patient is the insured Medical (General) History Surgical History Surgery Date(Month/Year)
[2025-01-30 07:31] VITALS: BP 90/60; PULSE 108; TEMP 36.9; O2SAT 99; BMI 25.0
--- NOTE | 2025-01-30 07:31 | AM.OFFWIN_ITS ---
Intake Vital Signs 01/30/25 07:31 Height 5 ft 5 in Weight 150 lb BMI 25.0 BP 90/60 Blood Pressure Location Rt brachial Position Sitting Pulse 108 H Pulse Source Pulse Oximeter Temp 98.4 F Pulse Oximetry (%) 99 Oxygen Delivery Method Room Air Intake Visit Reasons: EP Sore throat, fevers Intake Note: Pt is here today c/o sore throat and fever [id number] Patient Tobacco Use Status: Never used Tobacco Allergies No Known Allergies Allergy (Verified 01/30/25 07:37) HPI HPI Comments History of Present Illness Details History of Present Illness - The patient is a 25-year-old female pr esenting with a sore throat and fever. - The sore throat began on Wednesday night, followed by fever and body aches the next day. - The fever reached 101?F and was manage d with Tylenol and Motrin. - The patient experienced another fever episode at 2:00 a.m., which also resolved. - No cough, nausea, vomiting, ear pain, chest pain, or abdominal pain were reported. - No known allergies to medications and no other household members are sick. - She denies abd pain, n/v/d, CP or SOB. Physical Exam General: Cooperative, healthy appearing, comfortable, no acute distress and well developed Orientation: Patient oriented x3 Limitations: No limitations Head: Normal to inspection Ears: Hearing grossly normal bilaterally Nose: Normal external nose present Face and sinus: Normal facial exam Eyes: Appearance normal, both eyes and all related structures Neck: Normal visual inspection and Yes full ROM. Tonsillar lymphadenopathy noted. Respiratory: Normal respiratory effort and able to speak in complete sentences. Clear to auscultation bilaterally, no w/r/r noted. Cardiovascular: Regular rate and rhythm. Normal S1 and S2. No m/r/g noted. GI: Normal to inspection. Soft to palpation and nontender, nondistended. No TTP, no guarding or rebound tenderness. Skin: No rashes or lesions noted Patient was informed and verbally consented to the use of an ambient scribe for clinic note documentation during this visit. [facility] Family History Paternal Grandmother Heart attack Social History Housing: House Alcohol intake: never Patient Tobacco Use Status: Never used Tobacco service: No Current occupational status: employed Cognitive needs: No Hearing needs: No Vision needs: No Review of Systems Const All systems reviewed & are unremarkable except as noted in HPI and below Physical Exam Vital Signs: Last Vital Signs Temp 98.4 F 01/30/25 07:31 Pulse 108 H 01/30/25 07:31 BP 90/60 01/30/25 07:31 Pulse Ox 99 01/30/25 07:31 Oxygen Delivery Method Room Air 01/30/25 07:31 BMI result Body Mass Index 25.0 Results AMB Rapid Strep AMB Rapid Strep Positive Last Edit by Liza Mccurdy CMA on 01/30/25 07:47 Results Reviewed Results Reviewed: Laboratory Last Values Strep Scn Rapid Clinic Positive 01/30/25 07:45 Assessment & Plan Assessment & Plan (1) Strep pharyngitis: Code(s): J02.0 - Streptococcal pharyngitis Plan Most likely strep Rapid strep was positive in the office today plan - Prescribed penicillin for 10 days, to be taken twice daily. - Advised to continue Tylenol and Motrin for fever management. - Recommended dietary measures include ice chips for throat comfort. - Instructed to inform household members of the positive strep diagnosis. - follow up with PCP Orders: Orders AMB Rapid Strep Screen Today Emelyn Mantilla PA-C Z13.9 - Encounter for screening, unspecified Medications: New penicillin V potassium 500 mg PO BID 20 tabs 0RF 10 days Rekha Zelaya PA-C Coding Level of Care Code Est Pt Level 3 (42334) Diagnoses Strep pharyngitis J02.0
== END 2025-01-30 07:51 | disposition home or self-care (01) ==
PROVIDERS: Visit Provider Physician Assistant Medical
DX: Z13.9 Encounter for screening, unspecified (principal); J02.0 Streptococcal pharyngitis

== ENCOUNTER → 2025-01-30 07:20 | Outpatient (BNVA) | payer OTHER, SELFPAY | PROVIDERS: Visit Provider Physician Assistant Medical | DX: J02.0 Streptococcal pharyngitis (principal) | CPT/HCPCS: 87880 ==

== ENCOUNTER 2025-02-12 11:40 | Outpatient (AMB) | payer OTHER, SELFPAY | END 2025-02-12 11:41 | disposition home or self-care (01) | LOC: HO.HMGAL 11:40 | PROVIDERS: Visit Provider Registered Nurse Emergency | DX: J30.89 Other allergic rhinitis (principal) | CPT/HCPCS: 95117; 95165 ==

== ENCOUNTER 2025-02-28 15:02 | Outpatient (AMB) | payer OTHER, SELFPAY ==
[2025-02-28 15:05] VITALS: BP 89/58; PULSE 83; TEMP 36.3; O2SAT 93; BMI 25.1
--- NOTE | 2025-02-28 15:05 | MHC.PC.OV ---
Vital Signs 02/28/25 15:05 02/28/25 15:42 Height 5 ft 5 in Weight 151 lb BMI 25.1 BP 89/58 L 90/60 Blood Pressure Location Lt brachial Lt brachial Position Sitting Sitting Pulse 83 Pulse Source Pulse Oximeter Temp 97.3 F Temp Source Temporal Artery Scan Pulse Oximetry (%) 93 Oxygen Delivery Method Room Air Intake Visit Reasons: Annual PE Allergies No Known Allergies Allergy (Verified 02/28/25 15:18) Medication List - Last Reconciled 02/28/25 by Aubrie Castañeda PA-C albuterol sulfate 90 mcg/actuation 1 inh inhalation QID cetirizine 10 mg PO DAILY diphenhydramine HCl (Benadryl) 25 mg PO Q8H 5 days epinephrine (EpiPen 2-Herber) 0.3 mg (0.3 mL) IM Q4H PRN famotidine 20 mg PO BEDTIME montelukast 10 mg PO DAILY Tobacco use date assessed: 02/28/25 Dental Screening Dental Screen Date: 02/28/25 Did you have a dental visit in the last 12 months?: Yes Did you have a dental problem in the last 6 months where you did not have access to dental care?: No Was dental information given to patient?: Patient has dentist HPI Annual PE HPI Details 25-year-old female with past medical history of GERD and asthma last seen 02/2024 coming in for annual exam. Presenting for an annual wellness visit. She has a history of asthma and uses her albuterol inhaler as needed which is typically worsened due to allergies. She continues to follow with allergy shots every 2 weeks. She was previously scheduled ear nose and throat appointment however the nasal pain has improved and she canceled her visit. She no longer feels a breast lump and imaging ruled out a palpable mass. She has not been sexually active and is not interested in gynecology at this time. pap smear: declining today eye doctor: [facility] vaccines: declined flu, Tdap due and she will schedule herself [facility] Family History Paternal Grandmother Heart attack Social History Housing: House Alcohol intake: never Patient Tobacco Use Status: Never used Tobacco e-Cigarette/Vaping Use: Never Used Second Hand Smoke Exposure: No service: No Current occupational status: employed Current occupation: Teachers [employer] Cognitive needs: No Hearing needs: No Vision needs: No Female Reproductive History Menstrual Duration of menses: 6-7 days control method: none Questionnaire PHQ-9 Over the last 2 weeks, how often have you been bothered by any of the following problems? 1. Little interest or pleasure in doing things: not at all 2. Feeling down, depressed, or hopeless: not at all 3. Trouble falling or staying asleep, or sleeping too much: not at all 4. Feeling tired or having little energy: not at all 5. Poor appetite or overeating: not at all 6. Feeling bad about yourself - or that you are a failure or have let yourself or your family down: not at all 7. Trouble concentrating on things, such as reading the newspaper or watching television: not at all 8. Moving or speaking so slowly that other people could have noticed. Or the opposite - being so fidgety or restless that you have been moving around a lot more than usual: not at all 9. Thoughts that you would be better off or of hurting yourself in some way: not at all Total score: 0 Depression Screening Interpretation: Negative Depression Screening Done: Yes Source: Developed by Drs. Sudarshan Abreu, Candace Zarco, Michael Duggan and colleagues, with an educational gama from [employer]. Thrive Questionnaire Date Thrive assessed: 02/26/25 I am a: Patient What is your living situation today?: I have a steady place to live Within the past 12 months, did the food you bought not last and you didn't have the money to get more?: Never true Within the past 12 months, did you worry whether your food would run out before you got money to buy more?: Never true Do you have trouble paying for medicines?: No Do you have trouble getting transportation to medical appointments?: No Do you have trouble paying your heating and electricity bill?: No Do you have trouble taking care of your child, family member or friend?: No Do you have trouble with day-to-day activities such as bathing, preparing meals, shopping, managing finances, etc.?: No Are you currently unemployed and looking for a job?: No Are you interested in more education?: No Please select the resources that you would like help with: None Currently or been in a relationship where the following occur: No concerns reported THRIVE Score: 0 AUDIT C Alcohol Use Questionnaire (AUDIT-C) 1. How often do you have a drink containing alcohol?: Never 3. How often do you have six or more drinks on one occasion?: Never Total Score: 0 DIANNE-7 AMB Questionnaire DIANNE-7 Date DIANNE - 7 assessed: 02/28/25 Feeling nervous, anxious, or on edge: 0 = Not at all Not being able to stop or control worryin = Not at all Worrying too much about different things: 0 = Not at all Trouble relaxin = Not at all Being so restless that it is hard to sit still: 0 = Not at all Becoming easily annoyed or irritable: 0 = Not at all Feeling afraid as if something awful might happen: 0 = Not at all Total DIANNE-7 score (0-4 normal; 5-9 mild; 10-14 moderate; 15-21 severe): 0 Source: Developed by Drs. Sudarshan Abreu, Candace Zarco, Michael Duggan and colleagues, with an educational gama from [employer]. Review of Systems Const Denies body aches, Denies fatigue, Denies fever(s), Denies frequent falls, Denies headache(s) and Denies weakness Eyes Reports no additional complaints, Denies change in vision and Reports requires corrective lenses ENT Denies dysphagia, Denies dizziness, Denies facial pain, Denies headache(s), Denies nasal congestion, Denies odynophagia and Denies sinus pain Card Denies chest pain, Denies syncope, Denies irregular heart rhythm, Denies leg edema, Denies lightheadedness and Denies dyspnea Resp Denies cough and Denies dyspnea GI Denies constipation, Denies dysphagia, Denies dyspepsia, Denies diarrhea, Denies nausea, Denies odynophagia and Denies vomiting Denies urinary frequency, Denies dysuria, Denies urinary hesitancy and Denies urinary urgency Musc Denies back pain and Denies myalgias Skin/Breast Reports system reviewed and no additional complaints, except as documented Neuro Denies dizziness, Denies syncope, Denies frequent falls, Denies headache(s) and Denies weakness Psych Reports no additional complaints Endo Denies fatigue Physical exam (Primary Care) Vital Signs: Last Vital Signs Temp 97.3 F 02/28/25 15:05 Pulse 83 02/28/25 15:05 BP 89/58 L 02/28/25 15:05 Pulse Ox 93 02/28/25 15:05 Oxygen Delivery Method Room Air 02/28/25 15:05 BMI result Body Mass Index 25.1 Tobacco/Smoking Status: Tobacco use Status Tobacco use date assessed 02/28/25 02/28/25 15:07 Patient Tobacco Use Status Never used Tobacco 02/28/25 15:07 e-Cigarette/Vaping Use Never Used 02/28/25 15:07 PHQ-9: PHQ-9 Score PHQ-9: Total score 0 02/28/25 15:18 Depression Screening Interpretation: Negative Thrive Assessment: Date of Thrive Assessment Date Thrive assessed 02/26/25 02/28/25 15:07 Currently or been in a relationship where the following occur: No concerns reported Const General: cooperative, healthy appearing, comfortable and no acute distress Orientation/consciousness: patient oriented x3 HENMT Head: Yes normocephalic Ears: hearing grossly normal bilaterally, external ears normal, TM's normal bilaterally and EAC's normal General nose exam: Normal external nose present Face and sinus: Yes normal facial exam and Yes sinuses nontender Mouth: Normal oral and palatal mucosa present and tongue normal Throat: Yes posterior oropharynx normal Eyes General: appearance normal, both eyes and all related structures Conjunctivae: conjunctivae normal Pupils: Equal, round and reactive pupils present EOM: EOMs intact bilaterally and No Nystagmus present Neck Neck: Yes normal visual inspection, Yes full ROM and Yes no lymphadenopathy Chest Chest palpation & inspection: normal inspection of the chest Resp Effort & Inspection: normal respiratory effort Auscultation: clear to auscultation bilaterally, no crackles, no rales, no rhonchi, no wheezes and breath sounds present Cardio Rate: regular rate Rhythm: regular rhythm Peripheral pulses: radial pulses present and dorsalis pedis present GI Inspection: Yes normal to inspection and No Abdominal wall edema Palpation (GI): Soft to palpation, not firm and nontender Auscultation: normal bowel sounds Rectal Exam - Female: deferred General: Yes no CVA tenderness Back/Spine/Pelvis Back: no CVA tenderness Skin General skin exam: no rashes or lesions noted Neuro General: patient oriented x3 Cranial nerves: Yes Equal, round and reactive pupils present, Yes Midline tongue present, Yes Ability to bilaterally elevate shoulders present and No Nystagmus present Gait exam (Neuro): Normal gait present Extrem General: Yes normal to inspection, Yes full ROM, No no pedal edema and No edema Psych Speech and movement: Normal speech and movement present Affect: normal affect Insight: Good insight present (Psych) Judgement: Good judgement present (Psych) Coding Level of Care Code New Pt Prev Care 18-39yr([id number] Diagnoses Annual physical exam Z00.00 GERD (gastroesophageal reflux disease) K21.9 Asthma J45.909 Breast lump N63.0 Nose pain J34.89 Assessment & Plan Assessment & Plan (1) Annual physical exam: Code(s): Z00.00 - Encounter for general adult medical examination without abnormal findings Category: Medical Plan: Patient is due for Pap smears however she has never been sexually active and risk for cervical cancer is low. She would like to hold off on gynecology referral at this time. She is due for tetanus vaccine and she agrees to reach out to schedule this at a later date. Ordered for updated blood work. Healthy diet and regular exercise is encouraged. Plan to follow up yearly or sooner as needed or pending blood work evaluation. (2) GERD (gastroesophageal reflux disease): Code(s): K21.9 - Gastro-esophageal reflux disease without esophagitis Category: Medical Plan: Avoid trigger foods such as citrus, tomato products, soda, caffeine, spicy foods and other foods that may be irritating to your stomach. Avoid laying flat 3-4 hours after eating and elevate the head of the bed 30 degrees to prevent acid from moving into the esophagus. On famotidine as needed and finds this beneficial. (3) Asthma: Code(s): J45.909 - Unspecified asthma, uncomplicated Category: Medical Plan: Asthma currently controlled on present medications. Continue on montelukast and albuterol as needed.. Avoid triggers such as allergies. (4) Breast lump: Code(s): N63.0 - Unspecified lump in unspecified breast Category: Medical Plan: She had neg US last year and has not felt the lump since. (5) Nose pain: Code(s): J34.89 - Other specified disorders of nose and nasal sinuses Category: Medical Plan: Resolved at this time. Was not seen by ENT and does not want to r/s. Plan This note was constructed using voice recognition software. While every effort has been made to ensure accuracy and return to factory clerk, still areas may have been included sometimes these areas may affect the content or meeting of the given symptoms. Total time spent caring for the patient today was twenty minutes. This includes time spent before the visit reviewing the chart, time spent during the visit, and time spent after the visit and documentation. Orders: Orders Complete Blood Count Auto Diff Today K21.9 - Gastro-esophageal reflux disease without esophagitis, Z13.0 - Encounter for screening for diseases of the blood and blood-forming organs and certain disorders involving the immune mechanism Comprehensive Met. Panel Today K21.9 - Gastro-esophageal reflux disease without esophagitis, Z00.00 - Encounter for general adult medical examination without abnormal findings TSH reflex Free T4 Today Z13.29 - Encounter for screening for other suspected endocrine disorder Vitamin D 25-OH Total Today Z13.21 - Encounter for screening for nutritional disorder Vitamin B12 and Folate Today Z13.21 - Encounter for screening for nutritional disorder Medications: Refilled epinephrine (EpiPen 2-Herber) 0.3 mg (0.3 mL) IM Q4H PRN 2 ea 0RF anaphylaxis famotidine 20 mg PO BEDTIME 30 tabs 2RF
[2025-02-28 15:42] VITALS: BP 90/60
--- OUTSIDE RECORDS SUMMARY | 2025-02-28 18:05 | XMS_ITS | Patient Health Record ---
Author Organization [facility] [address] Address [address] [place] [address] Care Team Providers Care Deputy District Customs Director Name Role Phone Tad CRUZ, Clayton Primary Care Provider Marah Gary Unavailable [phone] Allergies No Known Allergies Reason For Referral No Information Medications Medication SIG (Take, Route, Fr equency, Duration) Notes Start Date End Date Status Gym Note . . . Medical from gym 06/12/19 06/02/2019 Active Cephalexin 500 MG 1 capsule Orally joselyn ry 6 hrs; Duration: 5 day(s) Active Biotin Active School Note . . . Pt was seen in [facility] today; Duration: . 06/02/2019 Active Cephalexin [...] Insured Coverage Start Date Coverage End Date [facility] [address] [place] [address] [id number] Dacia Willis Self - patient is the insured Medical (General) History Surgical History Surgery Date(Month/Year)
== END 2025-02-28 15:53 | disposition home or self-care (01) ==
LOC: HO.HMCH 15:03
DX: Z00.00 Encounter for general adult medical examination without abnormal findings (principal); K21.9 Gastro-esophageal reflux disease without esophagitis; J45.909 Unspecified asthma, uncomplicated; J34.89 Other specified disorders of nose and nasal sinuses

== ENCOUNTER 2025-02-28 16:11 | Outpatient (AMB) | payer OTHER, SELFPAY | END 2025-02-28 16:11 | disposition home or self-care (01) | LOC: HO.HMGAL 16:11 | PROVIDERS: Visit Provider Registered Nurse Emergency | DX: J30.89 Other allergic rhinitis (principal) | CPT/HCPCS: 95117; 95165 ==

== ENCOUNTER 2025-03-19 14:00 | Outpatient (AMB) | payer OTHER, SELFPAY | END 2025-03-19 14:01 | disposition home or self-care (01) | LOC: HO.HMGAL 14:00 | PROVIDERS: Visit Provider Registered Nurse Emergency | DX: J30.89 Other allergic rhinitis (principal) | CPT/HCPCS: 95117; 95165 ==

== ENCOUNTER 2025-04-16 14:16 | Outpatient (AMB) | payer OTHER, SELFPAY ==
--- OUTSIDE RECORDS SUMMARY | 2025-04-16 17:45 | XMS_ITS | Patient Health Record ---
Author Organization [facility] [place] Address [address] [address] Care Team Providers Care Filters Assembler Name Role Phone Tad CRUZ, Clayton Primary Care Provider Marah Gary Unavailable [phone] Allergies No Known Allergies Reason For Referral No Information Medications Medication SIG (Take, Route, Fr equency, Duration) Notes Start Date End Date Status Gym Note . . . Medical from gym 06/12/19 06/02/2019 Active Cephalexin 500 MG 1 capsule Orally joselyn ry 6 hrs; Duration: 5 day(s) Active Biotin Active School Note . . . Pt was seen in [facility] today; Duration: . 06/02/2019 Active Cephalexin 500 [...] Date [facility] [address] [place] [address] [id number] Dacia Willis Self - patient is the insured Medical (General) History Surgical History Surgery Date(Month/Year)
== END 2025-04-16 14:19 | disposition home or self-care (01) ==
LOC: HO.HMGAL 14:16
PROVIDERS: Visit Provider Registered Nurse Emergency
DX: J30.89 Other allergic rhinitis (principal)
CPT/HCPCS: 95117; 95165